=== PATIENT | female | born 1955 | race Two or more races ===

== ENCOUNTER 2017-09-17 18:59 | Emergency (ER) | payer OTHER ==
[~2017-09-17] VITALS: Ht 162.6 cm; Wt 89.8 kg
[2017-09-17] MEDS ORDERED: HYDROcodone-ACET 5/325MG TAB PO ONE (20:00)
[2017-09-17] MEDS ORDERED: KETOROLAC TROMETH 60MG/2ML VIAL IM ONE (20:00)
[2017-09-17 20:05] VITALS: BP 192/97
[2017-09-17] MEDS ORDERED: cloNIDine HCL 0.1 MG TAB PO ONE (20:45)
== END 2017-09-17 21:21 | disposition home or self-care (01) ==
LOC: ER 18:59
DX: S20.221A Contusion of right back wall of thorax, initial encounter (principal); S80.01XA Contusion of right knee, initial encounter; I10 Essential (primary) hypertension; E66.01 Morbid (severe) obesity due to excess calories; Z68.34 Body mass index [BMI] 34.0-34.9, adult; W18.39XA Other fall on same level, initial encounter; Y93.89 Activity, other specified; Y92.89 Other specified places as the place of occurrence of the external cause; Y99.8 Other external cause status
CPT/HCPCS: 72100; 73562; 93005; 96372; 99284; J1885

== ENCOUNTER 2020-12-29 11:04 | Inpatient (IN) | payer MEDICARE, OTHER ==
[~2020-12-29] VITALS: Ht 165.1 cm; Wt 86.2 kg
[2020-12-29 11:50] LABS: Basophils # (auto) 0.1 10 ^3/uL (0-0.2); Basophils % (auto) 1.2 % (0.0-2.0); Eosinophils # (auto) 0.2 10 ^3/uL (0-0.8); Hematocrit 42.6 % (36.0-46.0); Hemoglobin 14.9 g/dL (12.2-16.2); Lymphocytes # (auto) 1.1 10 ^3/uL (0.4-5.4); Lymphocytes % (auto) 19.4 % (10.0-50.0); Mean Corpuscular Hemoglobin 32.1 pg (28.0-32.0); Mean Corpuscular Hgb Conc. 34.9 g/dL (32.0-36.0); Monocytes # (auto) 0.5 10 ^3/uL (0-1.3); Monocytes % (auto) 8.3 % (0.0-12.0); Neutrophils # (auto) 3.7 10 ^3/uL (1.6-8.6); Neutrophils % (auto) 68.1 % (37.0-80.0); Nucleated Red Blood Cells % 0.1 %; Red Blood Cells 4.64 10^6/uL (4.0-5.20); Red Cell Distribution Width 13.7 % (11.8-14.3); White Blood Cell 5.5 10^3/uL (4.4-10.8)
[2020-12-29] MEDS ORDERED: cloNIDine HCL 0.1 MG TAB PO ONE (12:00)
[2020-12-29 12:13] LABS: Albumin 3.8 g/dL (3.4-5.0); Anion Gap 5 (5-15); Blood Urea Nitrogen 16 mg/dL (7-18); Calcium 8.9 mg/dL (8.5-10.1); Carbon Dioxide 30 mmol/L (21-32); Chloride 106 mmol/L (98-107); Glucose 97 mg/dL (74-106); Magnesium 2.5 mg/dL (1.6-2.6); Sodium 141 mmol/L (136-145)
[2020-12-29 12:19] LABS: Alanine Aminotransferase 38 U/L (13-56); Alkaline Phosphatase 77 U/L (45-117); Aspartate Aminotransferase 30 U/L (15-37); BUN/Creatinine Ratio 20.3; Bilirubin, Total 0.7 mg/dL (0.2-1.0); GFR African American 94 mL/min; GFR Non-African American 78 mL/min; Total Protein 7.8 g/dL (6.4-8.2)
[2020-12-29] MEDS ORDERED: POTASSIUM CHL 20MEQ/100ML 100 ML IV ONE (12:45)
[2020-12-29] MEDS ORDERED: ASPirin 81 mg TAB PO ONE (13:45)
[2020-12-29] MEDS ORDERED: MORPHINE SULFATE INJECTION 2 MG/ML SYRG IV PRN ×2 (13:45)
[2020-12-29] MEDS ORDERED: ACETAMINOPHEN 500 MG TAB PO PRN (13:45)
[2020-12-29] MEDS ORDERED: NITROGLYCERIN 0.4 MG SL TAB SL PRN (13:45)
[2020-12-29] MEDS: HYDROcodone-ACET 5/325MG TAB PO PRN (15:28)
[2020-12-29] MEDS: FOLIC ACID 1 MG, MULTIPLE VITAMIN 10 ML, MAGNESIUM SULF SDV 50% 8 MEQ, THIAMINE INJ 100... INJ SCH ×5 (15:30)
[2020-12-29 15:57] LABS: Cholesterol 158 mg/dL (< 200); Triglycerides 113 mg/dL (< 150)
[2020-12-29 15:59] LABS: HDL Cholesterol 43 mg/dL (40-59); LDL Cholesterol 97 mg/dL (< 100)
[2020-12-29] MEDS: ATORVASTATIN 20 MG TAB PO SCH (21:41)
[2020-12-29] MEDS: LABETALOL HCL 5 MG/ML 4ML SYRINGE IV PRN (21:41)
[2020-12-29 23:20] LABS: Urine Bacteria NONE SEEN /hpf (None Seen); Urine Blood TRACE /uL (Negative); Urine Mucus MODERATE (None Seen); Urine Specific Gravity 1.032 (1.001-1.035); Urine WBC 7 /hpf (0 - 5)
[2020-12-30] MEDS: LABETALOL HCL 5 MG/ML 4ML SYRINGE IV PRN (00:30)
[2020-12-30 04:25] VITALS: BP 195/84
[2020-12-30 06:51] VITALS: BP 195/84
[2020-12-30] MEDS ORDERED: ATE50T PO (07:06)
[2020-12-30] MEDS ORDERED: INFLUENZA QUAD 2020-2021 0.5 ML SYRG IM ONE (07:15)
[2020-12-30 09:00] VITALS: BP_SYST 99
[2020-12-30 09:18] LABS: BUN/Creatinine Ratio 16.2; Calcium 8.6 mg/dL (8.5-10.1); Potassium 3.1 mmol/L (3.5-5.1)
[2020-12-30] MEDS ORDERED: POTASSIUM CHLORIDE 40 MEQ, LIDOCAINE 1% (LOCAL ANESTH.) 4 ML in SODIUM CHL 0.9% 250 ML IV ONE (09:45)
[2020-12-30] MEDS: ASPirin 81 mg TAB PO SCH (10:13)
[2020-12-30] MEDS: FAMOTIDINE 20 MG TAB PO SCH (10:14)
[2020-12-30] MEDS: amLODIPine BESYLATE 5 MG TAB PO SCH (10:14)
[2020-12-30] MEDS: FOLIC ACID 1 MG, MULTIPLE VITAMIN 10 ML, MAGNESIUM SULF SDV 50% 8 MEQ, THIAMINE INJ 100... INJ SCH ×5 (12:15)
[2020-12-30] MEDS ORDERED: HCTZ 25 MG TAB PO ONE (12:30)
[2020-12-30 13:00] VITALS: BP 160/97
[2020-12-30 17:00] VITALS: BP 161/88
[2020-12-30 22:00] VITALS: BP 154/71
[2020-12-30] MEDS: ATORVASTATIN 20 MG TAB PO SCH (22:23)
[2020-12-30] MEDS: ONDANSETRON HCL 4 MG/2 ML VIAL IV PRN (22:40)
[2020-12-30] MEDS: HYDROcodone-ACET 5/325MG TAB PO PRN (22:40)
[2020-12-31 05:00] VITALS: BP 137/77
[2020-12-31 08:00] VITALS: BP 101/53
[2020-12-31] MEDS ORDERED: diphenhdrAMINE HCL 50 MG/1 ML VL IV ONE (08:45)
[2020-12-31] MEDS ORDERED: MIDAZOLAM HCL 2MG/2ML 2ml VIAL (1mg/ml) IV ONE (08:45)
[2020-12-31] MEDS ORDERED: fentaNYL CITRATE 100 MCG/2 ML VL IV ONE (08:45)
[2020-12-31] MEDS ORDERED: ONDANSETRON HCL 4 MG/2 ML VIAL IV ONE (08:45)
[2020-12-31] MEDS ORDERED: LIDOCAINE VISCOUS 2% 15ML UD MT ONE (08:45)
[2020-12-31] MEDS: HCTZ 25 MG TAB PO SCH (10:00)
[2020-12-31] MEDS: amLODIPine BESYLATE 5 MG TAB PO SCH (10:00)
[2020-12-31] MEDS: ASPirin 81 mg TAB PO SCH (10:00)
[2020-12-31] MEDS: FAMOTIDINE 20 MG TAB PO SCH (10:00)
[2020-12-31] MEDS ORDERED: METOPROLOL TARTRATE 1MG/1ML-5ML VIAL IV ONE (11:19)
[2020-12-31] MEDS ORDERED: hydrALAZINE HCL 20 MG/ML VL ONE (11:19)
[2020-12-31] MEDS: FOLIC ACID 1 MG, MULTIPLE VITAMIN 10 ML, MAGNESIUM SULF SDV 50% 8 MEQ, THIAMINE INJ 100... INJ SCH ×5 (14:30)
[2020-12-31 16:00] VITALS: BP 153/71
[2020-12-31] MEDS: ONDANSETRON HCL 4 MG/2 ML VIAL IV PRN (21:35)
[2020-12-31] MEDS: ATORVASTATIN 20 MG TAB PO SCH (21:40)
[2020-12-31 22:26] VITALS: BP 158/95
[2021-01-01] MEDS ORDERED: KETOROLAC TROMETH 30 MG/ML 1ML VIAL IV ONE (02:45)
[2021-01-01 05:00] VITALS: BP 162/79
[2021-01-01] MEDS: ONDANSETRON HCL 4 MG/2 ML VIAL IV PRN ×4 (07:59→23:43)
[2021-01-01] MEDS: ASPirin 81 mg TAB PO SCH (08:03)
[2021-01-01] MEDS: FAMOTIDINE 20 MG TAB PO SCH (08:07)
[2021-01-01] MEDS: HCTZ 25 MG TAB PO SCH (09:09)
[2021-01-01] MEDS: amLODIPine BESYLATE 5 MG TAB PO SCH (09:10)
[2021-01-01 09:30] VITALS: BP 168/74
[2021-01-01] MEDS: FOLIC ACID 1 MG, MULTIPLE VITAMIN 10 ML, MAGNESIUM SULF SDV 50% 8 MEQ, THIAMINE INJ 100... INJ SCH ×5 (11:02)
[2021-01-01] MEDS: HYDROmorphone HCL 2 MG/ML VL IV PRN ×3 (11:02→23:43)
[2021-01-01 13:00] VITALS: BP 107/51
[2021-01-01 16:53] VITALS: BP 148/85
[2021-01-01 22:00] VITALS: BP 149/83
[2021-01-01] MEDS: ATORVASTATIN 20 MG TAB PO SCH (22:10)
[2021-01-02 05:00] VITALS: BP 128/91
[2021-01-02 09:00] VITALS: BP 148/89
[2021-01-02] MEDS: FOLIC ACID 1 MG, MULTIPLE VITAMIN 10 ML, MAGNESIUM SULF SDV 50% 8 MEQ, THIAMINE INJ 100... INJ SCH ×5 (12:00)
[2021-01-02] MEDS: ASPirin 81 mg TAB PO SCH (12:26)
[2021-01-02] MEDS: HCTZ 25 MG TAB PO SCH (12:26)
[2021-01-02] MEDS: FAMOTIDINE 20 MG TAB PO SCH (12:27)
[2021-01-02] MEDS: amLODIPine BESYLATE 5 MG TAB PO SCH (12:27)
[2021-01-02] MEDS: HYDROcodone-ACET 5/325MG TAB PO PRN (12:42)
[2021-01-02 13:00] VITALS: BP 158/97
[2021-01-02 17:00] VITALS: BP 153/99
[2021-01-02] MEDS: HYDROmorphone HCL 2 MG/ML VL IV PRN (18:11)
[2021-01-02 21:32] VITALS: BP 148/90
[2021-01-02] MEDS: ATORVASTATIN 20 MG TAB PO SCH (22:14)
[2021-01-02] MEDS: SODIUM CHLORIDE 0.9% 1,000 ML IV SCH (22:42)
[2021-01-03 05:00] VITALS: BP 143/90
[2021-01-03 08:41] VITALS: BP 187/88
[2021-01-03] MEDS: ASPirin 81 mg TAB PO SCH (10:04)
[2021-01-03] MEDS: HCTZ 25 MG TAB PO SCH (10:04)
[2021-01-03] MEDS: amLODIPine BESYLATE 5 MG TAB PO SCH (10:05)
[2021-01-03] MEDS: FAMOTIDINE 20 MG TAB PO SCH (10:05)
[2021-01-03] MEDS: FOLIC ACID 1 MG, MULTIPLE VITAMIN 10 ML, MAGNESIUM SULF SDV 50% 8 MEQ, THIAMINE INJ 100... INJ SCH ×5 (12:53)
[2021-01-03 12:56] VITALS: BP 168/86
[2021-01-03] MEDS: HYDROmorphone HCL 2 MG/ML VL IV PRN (13:17)
[2021-01-03 16:33] VITALS: BP 147/85
[2021-01-03] MEDS: SODIUM CHLORIDE 0.9% 1,000 ML IV SCH (18:00)
[2021-01-03 21:00] VITALS: BP 149/87
[2021-01-03] MEDS: ATORVASTATIN 20 MG TAB PO SCH (21:41)
[2021-01-04] MEDS: HYDROmorphone HCL 2 MG/ML VL IV PRN ×2 (00:37→21:12)
[2021-01-04 05:00] VITALS: BP 141/82
[2021-01-04 08:00] VITALS: BP 137/91
[2021-01-04] MEDS: HYDROcodone-ACET 5/325MG TAB PO PRN (09:36)
[2021-01-04] MEDS: FAMOTIDINE 20 MG TAB PO SCH (09:37)
[2021-01-04] MEDS: ASPirin 81 mg TAB PO SCH (09:45)
[2021-01-04] MEDS: HCTZ 25 MG TAB PO SCH (09:46)
[2021-01-04] MEDS: amLODIPine BESYLATE 5 MG TAB PO SCH (09:47)
[2021-01-04 12:00] VITALS: BP 145/71
[2021-01-04] MEDS: FOLIC ACID 1 MG, MULTIPLE VITAMIN 10 ML, MAGNESIUM SULF SDV 50% 8 MEQ, THIAMINE INJ 100... INJ SCH ×5 (13:09)
[2021-01-04] MEDS: SODIUM CHLORIDE 0.9% 1,000 ML IV SCH (14:00)
[2021-01-04 16:00] VITALS: BP 159/84
[2021-01-04] MEDS: ONDANSETRON HCL 4 MG/2 ML VIAL IV PRN (17:47)
[2021-01-04] MEDS: ATORVASTATIN 20 MG TAB PO SCH (21:43)
[2021-01-04 23:23] VITALS: BP 160/105
[2021-01-05] MEDS: HYDROmorphone HCL 2 MG/ML VL IV PRN ×2 (03:45→16:24)
[2021-01-05 04:58] VITALS: BP 148/84
[2021-01-05 08:30] VITALS: BP 146/81
[2021-01-05] MEDS: SODIUM CHLORIDE 0.9% 1,000 ML IV SCH (10:00)
[2021-01-05] MEDS ORDERED: LORazepam 2MG/ML-1ML VIAL IV PRN (10:45)
[2021-01-05] MEDS: ONDANSETRON HCL 4 MG/2 ML VIAL IV PRN ×2 (10:55→17:01)
[2021-01-05] MEDS: FAMOTIDINE 20 MG TAB PO SCH (10:56)
[2021-01-05] MEDS: amLODIPine BESYLATE 5 MG TAB PO SCH (10:56)
[2021-01-05] MEDS: ASPirin 81 mg TAB PO SCH (10:57)
[2021-01-05] MEDS: HCTZ 25 MG TAB PO SCH (10:57)
[2021-01-05] MEDS: FOLIC ACID 1 MG, MULTIPLE VITAMIN 10 ML, MAGNESIUM SULF SDV 50% 8 MEQ, THIAMINE INJ 100... INJ SCH ×5 (11:52)
[2021-01-05 12:30] VITALS: BP 139/79
[2021-01-05 15:23] LABS: BUN/Creatinine Ratio 25.6; Calcium 9.8 mg/dL (8.5-10.1)
[2021-01-05 15:36] LABS: Potassium 2.4 mmol/L (3.5-5.1)
[2021-01-05] MEDS ORDERED: POTASSIUM CHLORIDE 20 MEQ, LIDOCAINE 1% (LOCAL ANESTH.) 2 ML in SODIUM CHL 0.9% 100 ML IV ONE (15:45)
[2021-01-05] MEDS ORDERED: POTASSIUM EFFERVESENT TAB 25 MEQ PO ONE (15:45)
[2021-01-05 17:00] VITALS: BP 149/94
== END 2021-01-05 18:40 | DRG 65 ==
LOC: ER 11:04 → TELE 11:05 → TELE-WESTW 12-30 04:25
PROVIDERS: ADMIT Nurse Practitioner Acute Care; ATTEND Family Medicine
PROC: B246ZZ4 Ultrasonography of Right and Left Heart, Transesophageal (ICD-10-PCS; principal; 2020-12-31)
DX: I63.511 Cerebral infarction due to unspecified occlusion or stenosis of right middle cerebral artery (principal); G81.94 Hemiplegia, unspecified affecting left nondominant side; E66.9 Obesity, unspecified; Z20.822 Contact with and (suspected) exposure to COVID-19; E87.6 Hypokalemia; F10.20 Alcohol dependence, uncomplicated; H53.462 Homonymous bilateral field defects, left side; I11.9 Hypertensive heart disease without heart failure; I16.0 Hypertensive urgency; I67.2 Cerebral atherosclerosis; W18.09XA Striking against other object with subsequent fall, initial encounter; Y92.009 Unspecified place in unspecified non-institutional (private) residence as the place of occurrence of the external cause; Z79.82 Long term (current) use of aspirin; Z79.899 Other long term (current) drug therapy; Z80.9 Family history of malignant neoplasm, unspecified; Z82.3 Family history of stroke; Z82.49 Family history of ischemic heart disease and other diseases of the circulatory system; Z83.3 Family history of diabetes mellitus; Z86.73 Personal history of transient ischemic attack (TIA), and cerebral infarction without residual deficits; Z87.891 Personal history of nicotine dependence; Z90.710 Acquired absence of both cervix and uterus; Z91.14 Patient's other noncompliance with medication regimen; Z91.19 Patient's noncompliance with other medical treatment and regimen; Z90.49 Acquired absence of other specified parts of digestive tract; Z88.5 Allergy status to narcotic agent; Z23 Encounter for immunization
CPT/HCPCS: 36415; 70450; 70551; 71045; 73060; 80048; 80053; 80061; 80320; 81001; 82140; 83735; 84484; 85025; 87086; 87426; 93005; 93306; 93312; 93886; 96365; 96367; 97110; 97530; 99152; 99291; G0378; J1885; J2001; J2250; J2405; J3480; J3490

== ENCOUNTER 2021-01-30 21:02 | Inpatient (IN) | payer MEDICARE, OTHER ==
[~2021-01-30] VITALS: Ht 165.1 cm; Wt 79.9 kg
[~2021-01-30 21:02] MED LIST: ATE50T PO
[2021-01-30 23:11] LABS: Basophils # (auto) 0.1 10 ^3/uL (0-0.2); Basophils % (auto) 1.1 % (0.0-2.0); Eosinophils # (auto) 0.2 10 ^3/uL (0-0.8); Eosinophils % (auto) 3.7 % (0.0-7.0); Hematocrit 45.6 % (36.0-46.0); Hemoglobin 16.1 g/dL (12.2-16.2); Lymphocytes # (auto) 1.5 10 ^3/uL (0.4-5.4); Lymphocytes % (auto) 24.8 % (10.0-50.0); Mean Corpuscular Hemoglobin 31.5 pg (28.0-32.0); Mean Corpuscular Hgb Conc. 35.2 g/dL (32.0-36.0); Mean Corpuscular Volume 89.5 fL (80.0-100.0); Monocytes # (auto) 0.7 10 ^3/uL (0-1.3); Monocytes % (auto) 11.7 % (0.0-12.0); Neutrophils # (auto) 3.6 10 ^3/uL (1.6-8.6); Neutrophils % (auto) 58.7 % (37.0-80.0); Nucleated Red Blood Cells % 0.2 %; Red Cell Distribution Width 13.1 % (11.8-14.3); White Blood Cell 6.1 10^3/uL (4.4-10.8)
[2021-01-30 23:38] LABS: Albumin 3.4 g/dL (3.4-5.0); Calcium 9.5 mg/dL (8.5-10.1)
[2021-01-30 23:43] LABS: BUN/Creatinine Ratio 21.4; Bilirubin, Total 0.9 mg/dL (0.2-1.0); Total Protein 7.1 g/dL (6.4-8.2)
[2021-01-30 23:52] LABS: Potassium 2.4 mmol/L (3.5-5.1)
[2021-01-31] MEDS ORDERED: fentaNYL CITRATE 100 MCG/2 ML VL IV ONE
[2021-01-31] MEDS ORDERED: ONDANSETRON HCL 4 MG/2 ML VIAL IV ONE
[2021-01-31] MEDS: POTASSIUM CHL 20MEQ/100ML 100 ML IV SCH ×4 (00:20→15:08)
[2021-01-31 03:14] LABS: BUN/Creatinine Ratio 19.1; Calcium 9.6 mg/dL (8.5-10.1)
[2021-01-31 03:23] LABS: Potassium 2.5 mmol/L (3.5-5.1)
[2021-01-31] MEDS ORDERED: HYDROcodone-ACET 5/325MG TAB PO PRN (05:00)
[2021-01-31] MEDS ORDERED: DOCUSATE SOD 100 MG CAP PO PRN (05:00)
[2021-01-31] MEDS ORDERED: NITROGLYCERIN 0.4 MG SL TAB SL PRN (05:00)
[2021-01-31] MEDS ORDERED: hydrALAZINE HCL 20 MG/ML VL IV PRN (05:00)
[2021-01-31] MEDS ORDERED: ACETAMINOPHEN 325 MG TAB PO PRN (05:00)
[2021-01-31] MEDS ORDERED: ONDANSETRON HCL 4 MG/2 ML VIAL ONE (05:23)
[2021-01-31] MEDS: SODIUM CHLOR 0.9% PF (SALINE LOCK) 10ML VIAL/SYR IV SCH ×3 (06:11→22:10)
[2021-01-31 08:55] LABS: Basophils # (auto) 0.1 10 ^3/uL (0-0.2); Basophils % (auto) 1.1 % (0.0-2.0); Eosinophils # (auto) 0.2 10 ^3/uL (0-0.8); Eosinophils % (auto) 3.4 % (0.0-7.0); Hemoglobin 15.9 g/dL (12.2-16.2); Lymphocytes # (auto) 1.8 10 ^3/uL (0.4-5.4); Lymphocytes % (auto) 28.8 % (10.0-50.0); Mean Corpuscular Hemoglobin 30.9 pg (28.0-32.0); Mean Corpuscular Hgb Conc. 34.6 g/dL (32.0-36.0); Mean Corpuscular Volume 89.4 fL (80.0-100.0); Monocytes # (auto) 0.7 10 ^3/uL (0-1.3); Monocytes % (auto) 11.7 % (0.0-12.0); Neutrophils # (auto) 3.3 10 ^3/uL (1.6-8.6); Nucleated Red Blood Cells % 0.7 %; Red Blood Cells 5.14 10^6/uL (4.0-5.20); Red Cell Distribution Width 13.1 % (11.8-14.3); White Blood Cell 6.1 10^3/uL (4.4-10.8)
[2021-01-31 09:19] LABS: Albumin 3.4 g/dL (3.4-5.0)
[2021-01-31 09:22] LABS: Bilirubin, Total 0.9 mg/dL (0.2-1.0); Total Protein 6.9 g/dL (6.4-8.2)
[2021-01-31] MEDS: MULTIPLE VITAMIN TAB PO SCH (09:24)
[2021-01-31] MEDS: ASPirin 81 mg TAB PO SCH (09:24)
[2021-01-31] MEDS: ZINC SULFATE 220mg CAP or TAB PO SCH (09:24)
[2021-01-31] MEDS: ATENOLOL 50 MG TAB PO SCH (09:25)
[2021-01-31] MEDS: FAMOTIDINE 20 MG TAB PO SCH ×2 (09:25→22:10)
[2021-01-31] MEDS: ASCORBIC ACID 500 MG TAB PO SCH ×2 (09:31→22:09)
[2021-01-31 09:40] LABS: Potassium 2.5 mmol/L (3.5-5.1)
[2021-01-31] MEDS ORDERED: POTASSIUM EFFERVESENT TAB 25 MEQ PO ONE ×2 (10:00)
[2021-01-31] MEDS ORDERED: FOLIC ACID 1 MG, MULTIPLE VITAMIN 10 ML, MAGNESIUM SULF SDV 50% 8 MEQ, THIAMINE INJ 100... INJ SCH ×5 (12:00)
[2021-01-31 13:00] VITALS: BP 138/78
[2021-01-31] MEDS: traMADol HCL 50 MG TAB PO PRN ×2 (13:26→22:10)
[2021-01-31] MEDS: ONDANSETRON HCL 4 MG/2 ML VIAL IV PRN (13:26)
[2021-01-31] MEDS ORDERED: ASPI-543 PO (14:02)
[2021-01-31] MEDS ORDERED: HYDR-4902 PO (14:02)
[2021-01-31] MEDS ORDERED: ATO40T PO (14:02)
[2021-01-31 17:00] VITALS: BP 115/65
[2021-01-31 22:00] VITALS: BP 124/70
[2021-01-31] MEDS: ATORVASTATIN 20 MG TAB PO SCH (22:10)
[2021-02-01 05:00] VITALS: BP 106/49
[2021-02-01] MEDS: SODIUM CHLOR 0.9% PF (SALINE LOCK) 10ML VIAL/SYR IV SCH ×3 (06:20→21:49)
[2021-02-01 07:24] LABS: Basophils # (auto) 0.1 10 ^3/uL (0-0.2); Basophils % (auto) 0.8 % (0.0-2.0); Eosinophils # (auto) 0.3 10 ^3/uL (0-0.8); Eosinophils % (auto) 4.6 % (0.0-7.0); Hematocrit 45.2 % (36.0-46.0); Hemoglobin 15.5 g/dL (12.2-16.2); Lymphocytes # (auto) 2.2 10 ^3/uL (0.4-5.4); Lymphocytes % (auto) 31.3 % (10.0-50.0); Mean Corpuscular Hemoglobin 31.2 pg (28.0-32.0); Mean Corpuscular Hgb Conc. 34.3 g/dL (32.0-36.0); Mean Corpuscular Volume 91.1 fL (80.0-100.0); Monocytes # (auto) 0.8 10 ^3/uL (0-1.3); Monocytes % (auto) 10.9 % (0.0-12.0); Neutrophils # (auto) 3.7 10 ^3/uL (1.6-8.6); Neutrophils % (auto) 52.4 % (37.0-80.0); Nucleated Red Blood Cells % 0.1 %; Red Blood Cells 4.96 10^6/uL (4.0-5.20); Red Cell Distribution Width 13.4 % (11.8-14.3); White Blood Cell 7.1 10^3/uL (4.4-10.8)
[2021-02-01 07:40] LABS: Albumin 3.2 g/dL (3.4-5.0); Calcium 9.3 mg/dL (8.5-10.1)
[2021-02-01 07:44] LABS: BUN/Creatinine Ratio 14.9; Bilirubin, Total 1.1 mg/dL (0.2-1.0); Total Protein 6.3 g/dL (6.4-8.2)
[2021-02-01 07:59] LABS: Potassium 2.8 mmol/L (3.5-5.1)
[2021-02-01] MEDS: POTASSIUM CHL 20MEQ/100ML 100 ML IV SCH ×3 (08:38→15:35)
[2021-02-01 09:00] VITALS: BP 126/76
[2021-02-01] MEDS: ASPirin 81 mg TAB PO SCH (09:30)
[2021-02-01] MEDS: FAMOTIDINE 20 MG TAB PO SCH ×2 (09:30→21:49)
[2021-02-01] MEDS: ASCORBIC ACID 500 MG TAB PO SCH ×2 (09:30→21:49)
[2021-02-01] MEDS: ONDANSETRON HCL 4 MG/2 ML VIAL IV PRN (09:35)
[2021-02-01] MEDS: ZINC SULFATE 220mg CAP or TAB PO SCH (10:00)
[2021-02-01] MEDS: MULTIPLE VITAMIN TAB PO SCH (10:00)
[2021-02-01] MEDS: ATENOLOL 50 MG TAB PO SCH (10:00)
[2021-02-01] MEDS: traMADol HCL 50 MG TAB PO PRN (12:15)
[2021-02-01 13:00] VITALS: BP 146/76
[2021-02-01 13:33] LABS: Urine Bacteria NONE SEEN /hpf (None Seen); Urine Blood TRACE /uL (Negative); Urine Specific Gravity 1.017 (1.001-1.035); Urine WBC 3 /hpf (0 - 5)
[2021-02-01 13:55] LABS: Alcohol, Urine < 3.0 mg/dL (0-10); Amphetamine Screen, Urine NEGATIVE (NEGATIVE); Barbiturate Scree,Urine NEGATIVE (NEGATIVE); Benzodiazephine Screen, Urine NEGATIVE (NEGATIVE); Cannabinoid Screen, Urine NEGATIVE (NEGATIVE); Cocaine Screen, Urine NEGATIVE (NEGATIVE); Opiate Scree,Urine POSITIVE (NEGATIVE); Phencyclidine Screen, Urine NEGATIVE (NEGATIVE)
[2021-02-01] MEDS: ALPRAZolam 0.5 MG TAB PO PRN (15:36)
[2021-02-01 17:00] VITALS: BP 133/79
[2021-02-01] MEDS ORDERED: POTASSIUM CHL 20MEQ/100ML 200 ML IV SCH (20:00)
[2021-02-01] MEDS: ATORVASTATIN 20 MG TAB PO SCH (21:49)
[2021-02-01 22:00] VITALS: BP 144/71
[2021-02-02] MEDS: ALPRAZolam 0.5 MG TAB PO PRN ×2 (00:44→16:53)
[2021-02-02] MEDS: SODIUM CHLOR 0.9% PF (SALINE LOCK) 10ML VIAL/SYR IV SCH ×3 (06:09→21:45)
[2021-02-02 06:50] VITALS: BP 150/76
[2021-02-02 07:44] LABS: Potassium 3.3 mmol/L (3.5-5.1)
[2021-02-02 07:50] LABS: BUN/Creatinine Ratio 15.8; Calcium 9.2 mg/dL (8.5-10.1)
[2021-02-02 09:13] VITALS: BP 137/65
[2021-02-02] MEDS: MULTIPLE VITAMIN TAB PO SCH (10:55)
[2021-02-02] MEDS: ASCORBIC ACID 500 MG TAB PO SCH ×2 (10:55→21:46)
[2021-02-02] MEDS: ASPirin 81 mg TAB PO SCH (10:55)
[2021-02-02] MEDS: FAMOTIDINE 20 MG TAB PO SCH ×2 (10:55→21:46)
[2021-02-02] MEDS: ZINC SULFATE 220mg CAP or TAB PO SCH (10:55)
[2021-02-02 13:00] VITALS: BP 120/71
[2021-02-02] MEDS: POTASSIUM CHL 20MEQ/100ML 200 ML IV SCH ×2 (13:04→23:29)
[2021-02-02] MEDS: traMADol HCL 50 MG TAB PO PRN ×2 (13:08→20:05)
[2021-02-02 17:01] VITALS: BP 118/69
[2021-02-02] MEDS: ATORVASTATIN 20 MG TAB PO SCH (21:45)
[2021-02-02 22:00] VITALS: BP 140/76
[2021-02-03 05:00] VITALS: BP 135/68
[2021-02-03 05:40] LABS: Calcium 9.1 mg/dL (8.5-10.1); Potassium 3.5 mmol/L (3.5-5.1)
[2021-02-03 05:44] LABS: BUN/Creatinine Ratio 12.8
[2021-02-03 09:00] VITALS: BP 145/78
[2021-02-03] MEDS: POTASSIUM CHL 20MEQ/100ML 200 ML IV SCH ×2 (10:28→20:00)
[2021-02-03] MEDS: MULTIPLE VITAMIN TAB PO SCH (10:29)
[2021-02-03] MEDS: ZINC SULFATE 220mg CAP or TAB PO SCH (10:29)
[2021-02-03] MEDS: FAMOTIDINE 20 MG TAB PO SCH ×2 (10:29→22:39)
[2021-02-03] MEDS: ASCORBIC ACID 500 MG TAB PO SCH ×2 (10:29→22:40)
[2021-02-03] MEDS: ASPirin 81 mg TAB PO SCH (10:29)
[2021-02-03] MEDS: traMADol HCL 50 MG TAB PO PRN (11:27)
[2021-02-03 13:00] VITALS: BP 147/88
[2021-02-03] MEDS: SODIUM CHLOR 0.9% PF (SALINE LOCK) 10ML VIAL/SYR IV SCH ×2 (14:00→22:39)
[2021-02-03 16:18] VITALS: BP 147/86
[2021-02-03 17:00] VITALS: BP 147/86
[2021-02-03] MEDS: ALPRAZolam 0.5 MG TAB PO PRN (19:47)
[2021-02-03 22:00] VITALS: BP 145/87
[2021-02-03] MEDS: ATORVASTATIN 20 MG TAB PO SCH (22:39)
== END 2021-02-04 02:27 | disposition home health service (06) | DRG 641 ==
LOC: ER 21:02 → EDBD 21:02 → TELE 21:03 → TELE-WESTW 01-31 11:41
PROVIDERS: ADMIT Nurse Practitioner Family; ATTEND Family Medicine
DX: E87.6 Hypokalemia (principal); F10.239 Alcohol dependence with withdrawal, unspecified; E78.00 Pure hypercholesterolemia, unspecified; E78.5 Hyperlipidemia, unspecified; F41.9 Anxiety disorder, unspecified; I10 Essential (primary) hypertension; Z20.828 Contact with and (suspected) exposure to other viral communicable diseases; Z80.9 Family history of malignant neoplasm, unspecified; Z83.3 Family history of diabetes mellitus; Z82.49 Family history of ischemic heart disease and other diseases of the circulatory system; Z86.73 Personal history of transient ischemic attack (TIA), and cerebral infarction without residual deficits; Z90.710 Acquired absence of both cervix and uterus; Z91.14 Patient's other noncompliance with medication regimen; Z90.49 Acquired absence of other specified parts of digestive tract; Z88.5 Allergy status to narcotic agent
CPT/HCPCS: 36415; 71045; 72192; 80048; 80053; 80061; 80307; 81001; 83036; 83735; 84484; 85025; 87081; 87426; 93005; 96365; 96366; 96375; 97110; 97530; G0378; J2405; J3480

== ENCOUNTER 2021-04-20 14:02 | Inpatient (IN) | payer MEDICARE, OTHER ==
[~2021-04-20] VITALS: Ht 160 cm; Wt 68.9 kg
[~2021-04-20 14:02] MED LIST changes: +ASPI-543 PO; +ATO40T PO; +HYDR-4902 PO
[2021-04-20 15:22] LABS: Basophils # (auto) 0.1 10 ^3/uL (0-0.2); Basophils % (auto) 0.8 % (0.0-2.0); Eosinophils # (auto) 0.1 10 ^3/uL (0-0.8); Eosinophils % (auto) 1.1 % (0.0-7.0); Hematocrit 41.5 % (36.0-46.0); Hemoglobin 14.3 g/dL (12.2-16.2); Lymphocytes # (auto) 0.9 10 ^3/uL (0.4-5.4); Lymphocytes % (auto) 10.5 % (10.0-50.0); Mean Corpuscular Hemoglobin 32.9 pg (28.0-32.0); Mean Corpuscular Hgb Conc. 34.5 g/dL (32.0-36.0); Mean Corpuscular Volume 95.3 fL (80.0-100.0); Monocytes # (auto) 0.8 10 ^3/uL (0-1.3); Monocytes % (auto) 8.9 % (0.0-12.0); Neutrophils # (auto) 7.1 10 ^3/uL (1.6-8.6); Neutrophils % (auto) 78.7 % (37.0-80.0); Red Blood Cells 4.35 10^6/uL (4.0-5.20); Red Cell Distribution Width 13.9 % (11.8-14.3)
[2021-04-20 15:38] LABS: Albumin 3.5 g/dL (3.4-5.0); Anion Gap 6 (5-15); Blood Urea Nitrogen 12 mg/dL (7-18); Calcium 9.8 mg/dL (8.5-10.1); Carbon Dioxide 24 mmol/L (21-32); Chloride 111 mmol/L (98-107); GFR African American 122 mL/min; GFR Non-African American 101 mL/min; Glucose 107 mg/dL (74-106); Magnesium 2.1 mg/dL (1.6-2.6); Potassium 4.2 mmol/L (3.5-5.1); Sodium 141 mmol/L (136-145)
[2021-04-20 15:43] LABS: Alanine Aminotransferase 17 U/L (13-56); Alkaline Phosphatase 67 U/L (45-117); Aspartate Aminotransferase 14 U/L (15-37); Bilirubin, Total 0.6 mg/dL (0.2-1.0)
[2021-04-20] MEDS ORDERED: ONDANSETRON HCL 4 MG/2 ML VIAL ONE (16:07)
[2021-04-20] MEDS ORDERED: ONDANSETRON HCL 4 MG/2 ML VIAL IV ONE (16:15)
[2021-04-20] MEDS ORDERED: LORazepam 2MG/ML-1ML VIAL IV ONE (18:30)
[2021-04-20] MEDS ORDERED: ONDANSETRON HCL 4 MG/2 ML VIAL IV PRN (21:00)
[2021-04-20] MEDS ORDERED: NITROGLYCERIN 0.4 MG SL TAB SL PRN (21:00)
[2021-04-20] MEDS ORDERED: TEMAZEPAM 15 MG CAP PO PRN (21:00)
[2021-04-20] MEDS ORDERED: ACETAMINOPHEN 325 MG TAB PO PRN (21:00)
[2021-04-20] MEDS ORDERED: LABETALOL HCL 5 MG/ML 4ML SYRINGE IV PRN (22:15)
[2021-04-20] MEDS: ASPirin 81 mg TAB PO SCH (22:21)
[2021-04-20] MEDS: ENOXAPARIN SOD 40 MG/0.4 ML SYRINGE SC SCH (22:22)
[2021-04-20] MEDS: ATORVASTATIN 20 MG TAB PO SCH (22:22)
[2021-04-20] MEDS: FAMOTIDINE 20 MG TAB PO SCH (22:22)
[2021-04-20] MEDS ORDERED: IOHEXOL 350 MG/ML 100ML IJ ONE (22:31)
[2021-04-21 05:48] VITALS: BP 144/90
[2021-04-21 06:52] VITALS: BP 132/71
[2021-04-21 09:00] VITALS: BP 148/85
[2021-04-21 10:05] LABS: BUN/Creatinine Ratio 21.1; Calcium 9.9 mg/dL (8.5-10.1); Potassium 3.7 mmol/L (3.5-5.1)
[2021-04-21 10:14] LABS: Basophils # (auto) 0.1 10 ^3/uL (0-0.2); Basophils % (auto) 1.5 % (0.0-2.0); Eosinophils # (auto) 0.1 10 ^3/uL (0-0.8); Eosinophils % (auto) 2.2 % (0.0-7.0); Hematocrit 36.5 % (36.0-46.0); Hemoglobin 12.4 g/dL (12.2-16.2); Lymphocytes # (auto) 1.2 10 ^3/uL (0.4-5.4); Mean Corpuscular Hemoglobin 32.8 pg (28.0-32.0); Mean Corpuscular Hgb Conc. 34.1 g/dL (32.0-36.0); Mean Corpuscular Volume 96.2 fL (80.0-100.0); Monocytes # (auto) 0.5 10 ^3/uL (0-1.3); Monocytes % (auto) 9.7 % (0.0-12.0); Neutrophils # (auto) 3.7 10 ^3/uL (1.6-8.6); Neutrophils % (auto) 65.6 % (37.0-80.0); Nucleated Red Blood Cells % 0.1 %; Red Blood Cells 3.79 10^6/uL (4.0-5.20); White Blood Cell 5.6 10^3/uL (4.4-10.8)
[2021-04-21] MEDS: ASPirin 81 mg TAB PO SCH (11:34)
[2021-04-21] MEDS: FAMOTIDINE 20 MG TAB PO SCH ×2 (11:34→21:05)
[2021-04-21] MEDS: ENOXAPARIN SOD 40 MG/0.4 ML SYRINGE SC SCH (11:34)
[2021-04-21] MEDS: ATENOLOL 50 MG TAB PO SCH (11:37)
[2021-04-21] MEDS ORDERED: SERT50TA19 PO (11:50)
[2021-04-21] MEDS ORDERED: QUET1TAB11 PO (11:50)
[2021-04-21] MEDS ORDERED: SPIR25TA8 PO (11:50)
[2021-04-21 13:00] VITALS: BP 137/79
[2021-04-21 16:12] LABS: Urine Amorphous Crystal FEW /hpf (None Seen); Urine Bacteria FEW /hpf (None Seen); Urine Blood Negative /uL (Negative); Urine Hyaline Cast FEW /lpf (0 - 2); Urine Mucus FEW (None Seen); Urine WBC 6 /hpf (0 - 5)
[2021-04-21] MEDS ORDERED: IOHEXOL 350 MG/ML 100ML IJ ONE (16:51)
[2021-04-21 17:00] VITALS: BP 160/96
[2021-04-21] MEDS: ATORVASTATIN 20 MG TAB PO SCH (21:05)
[2021-04-21 22:00] VITALS: BP 168/95
[2021-04-22 05:00] VITALS: BP 156/76
[2021-04-22 09:00] VITALS: BP 139/76
[2021-04-22] MEDS: ATENOLOL 50 MG TAB PO SCH (09:23)
[2021-04-22] MEDS: FAMOTIDINE 20 MG TAB PO SCH (09:26)
[2021-04-22] MEDS: ASPirin 81 mg TAB PO SCH (09:27)
[2021-04-22] MEDS: ENOXAPARIN SOD 40 MG/0.4 ML SYRINGE SC SCH (09:27)
[2021-04-22 13:00] VITALS: BP 144/89
[2021-04-22 13:16] VITALS: BP 145/84
[2021-04-22 17:00] VITALS: BP 132/78
== END 2021-04-22 21:02 | disposition home or self-care (01) | DRG 313 ==
LOC: ER 14:02 → EDBD 14:02 → TELE 20:50 → TELE-EAST 22:28
PROVIDERS: ADMIT Nurse Practitioner; ATTEND Internal Medicine
DX: R07.9 Chest pain, unspecified (principal); G81.94 Hemiplegia, unspecified affecting left nondominant side; E66.9 Obesity, unspecified; E78.5 Hyperlipidemia, unspecified; I08.0 Rheumatic disorders of both mitral and aortic valves; I10 Essential (primary) hypertension; Z20.822 Contact with and (suspected) exposure to COVID-19; Z80.9 Family history of malignant neoplasm, unspecified; Z82.49 Family history of ischemic heart disease and other diseases of the circulatory system; Z83.3 Family history of diabetes mellitus; Z90.710 Acquired absence of both cervix and uterus; R79.89 Other specified abnormal findings of blood chemistry; Z88.5 Allergy status to narcotic agent; Z79.899 Other long term (current) drug therapy; Z79.01 Long term (current) use of anticoagulants; Z79.891 Long term (current) use of opiate analgesic; Z79.82 Long term (current) use of aspirin; Z90.49 Acquired absence of other specified parts of digestive tract; Z68.29 Body mass index [BMI] 29.0-29.9, adult
CPT/HCPCS: 36415; 71045; 71275; 80048; 80053; 81001; 83735; 83880; 84484; 85025; 85049; 85379; 87426; 93005; 96374; 96375; 99291; G0378; J2405; J3490

== ENCOUNTER 2022-03-12 05:22 | Inpatient (IN) | payer MEDICARE, OTHER ==
[~2022-03-12] VITALS: Ht 167.6 cm; Wt 77.0 kg
[~2022-03-12 05:22] MED LIST changes: -ATE50T PO; +QUET1TAB11 PO; +SERT50TA19 PO; +SPIR25TA8 PO
[2022-03-12 06:19] LABS: Basophils # (auto) 0 10 ^3/uL (0-0.2); Basophils % (auto) 0.9 % (0.0-2.0); Eosinophils # (auto) 0.1 10 ^3/uL (0-0.8); Hematocrit 43.7 % (36.0-46.0); Lymphocytes # (auto) 0.4 10 ^3/uL (0.4-5.4); Lymphocytes % (auto) 7.7 % (10.0-50.0); Mean Corpuscular Hemoglobin 30.7 pg (28.0-32.0); Mean Corpuscular Hgb Conc. 34.3 g/dL (32.0-36.0); Mean Corpuscular Volume 89.6 fL (80.0-100.0); Monocytes # (auto) 0.5 10 ^3/uL (0-1.3); Monocytes % (auto) 8.9 % (0.0-12.0); Neutrophils # (auto) 4.6 10 ^3/uL (1.6-8.6); Neutrophils % (auto) 81.5 % (37.0-80.0); Red Blood Cells 4.88 10^6/uL (4.0-5.20); Red Cell Distribution Width 14.4 % (11.8-14.3); White Blood Cell 5.7 10^3/uL (4.4-10.8)
[2022-03-12 06:35] LABS: Albumin 3.9 g/dL (3.4-5.0); Calcium 9.3 mg/dL (8.5-10.1); Magnesium 2.4 mg/dL (1.6-2.6); Potassium 3.8 mmol/L (3.5-5.1)
[2022-03-12 06:38] LABS: Bilirubin, Total 0.5 mg/dL (0.2-1.0); Total Protein 7.8 g/dL (6.4-8.2)
[2022-03-12] MEDS ORDERED: NITROGLYCERIN 0.4 MG SL TAB SL PRN (10:30)
[2022-03-12] MEDS ORDERED: hydrALAZINE HCL 20 MG/ML VL IV PRN (10:45)
[2022-03-12 11:02] LABS: Cholesterol 177 mg/dL (< 200)
[2022-03-12 11:05] LABS: HDL Cholesterol 46 mg/dL (40-59); LDL Cholesterol 110 mg/dL (< 100); Triglycerides 113 mg/dL (< 150)
[2022-03-12] MEDS: ONDANSETRON HCL 4 MG/2 ML VIAL IV PRN ×2 (11:42→21:10)
[2022-03-12] MEDS ORDERED: ACETAMINOPHEN 500 MG TAB PO ONE (12:00)
[2022-03-12 12:18] LABS: Urine Bacteria NONE SEEN /hpf (None Seen); Urine Blood TRACE /uL (Negative); Urine Mucus FEW (None Seen); Urine Specific Gravity 1.008 (1.001-1.035); Urine WBC 272 /hpf (0 - 5); Urine WBC Clumps PRESENT /hpf (None Seen)
[2022-03-12] MEDS: cefTRIAXone 1GM/50ML D5W 50 ML IV SCH (14:00)
[2022-03-12] MEDS: SPIRONOLACTONE 25 MG TAB PO SCH (18:13)
[2022-03-12 18:50] VITALS: BP 164/83
[2022-03-12 22:00] VITALS: BP 140/88
[2022-03-12] MEDS: traMADol HCL 50 MG TAB PO PRN (23:25)
[2022-03-13 05:00] VITALS: BP 143/88
[2022-03-13] MEDS: SPIRONOLACTONE 25 MG TAB PO SCH (06:20)
[2022-03-13 06:26] LABS: Basophils # (auto) 0 10 ^3/uL (0-0.2); Basophils % (auto) 0.8 % (0.0-2.0); Eosinophils # (auto) 0 10 ^3/uL (0-0.8); Eosinophils % (auto) 0.1 % (0.0-7.0); Hematocrit 43.6 % (36.0-46.0); Hemoglobin 15.3 g/dL (12.2-16.2); Mean Corpuscular Hemoglobin 30.7 pg (28.0-32.0); Mean Corpuscular Volume 87.8 fL (80.0-100.0); Neutrophils # (auto) 3.5 10 ^3/uL (1.6-8.6); Neutrophils % (auto) 72.1 % (37.0-80.0); Nucleated Red Blood Cells % 0.1 %; Red Blood Cells 4.97 10^6/uL (4.0-5.20); Red Cell Distribution Width 14.1 % (11.8-14.3); White Blood Cell 4.8 10^3/uL (4.4-10.8)
[2022-03-13] MEDS: traMADol HCL 50 MG TAB PO PRN ×2 (06:45→18:36)
[2022-03-13 06:49] LABS: Albumin 3.8 g/dL (3.4-5.0); Calcium 9.4 mg/dL (8.5-10.1)
[2022-03-13 06:53] LABS: BUN/Creatinine Ratio 16.9; Bilirubin, Total 0.6 mg/dL (0.2-1.0); Total Protein 7.7 g/dL (6.4-8.2)
[2022-03-13 07:21] LABS: Lymphocytes # (auto) 0.5 10 ^3/uL (0.4-5.4); Lymphocytes % (auto) 9.4 % (10.0-50.0); Monocytes # (auto) 0.8 10 ^3/uL (0-1.3); Monocytes % (auto) 17.6 % (0.0-12.0)
[2022-03-13] MEDS ORDERED: TRAM50TA2 PO (07:42)
[2022-03-13] MEDS: cefTRIAXone 1GM/50ML D5W 50 ML IV SCH (09:00)
[2022-03-13 09:05] VITALS: BP 138/91
[2022-03-13] MEDS: ENOXAPARIN SOD 40 MG/0.4 ML SYRINGE SC SCH (10:00)
[2022-03-13 12:50] VITALS: BP 142/84
[2022-03-13 14:17] LABS: Alcohol, Urine < 3.0 mg/dL (0-10); Amphetamine Screen, Urine NEGATIVE (NEGATIVE); Barbiturate Scree,Urine NEGATIVE (NEGATIVE); Benzodiazephine Screen, Urine NEGATIVE (NEGATIVE); Cannabinoid Screen, Urine NEGATIVE (NEGATIVE); Cocaine Screen, Urine NEGATIVE (NEGATIVE); Opiate Scree,Urine NEGATIVE (NEGATIVE); Phencyclidine Screen, Urine NEGATIVE (NEGATIVE)
[2022-03-13 17:06] VITALS: BP 131/77
[2022-03-13] MEDS: ONDANSETRON HCL 4 MG/2 ML VIAL IV PRN (21:34)
[2022-03-13 22:00] VITALS: BP 139/90
[2022-03-13] MEDS: ATORVASTATIN 20 MG TAB PO SCH (22:37)
[2022-03-14 05:00] VITALS: BP 133/74
[2022-03-14 06:24] LABS: Basophils # (auto) 0 10 ^3/uL (0-0.2); Basophils % (auto) 0.8 % (0.0-2.0); Eosinophils # (auto) 0 10 ^3/uL (0-0.8); Hematocrit 42.1 % (36.0-46.0); Lymphocytes # (auto) 0.6 10 ^3/uL (0.4-5.4); Lymphocytes % (auto) 11.8 % (10.0-50.0); Mean Corpuscular Hemoglobin 31.3 pg (28.0-32.0); Mean Corpuscular Hgb Conc. 35.7 g/dL (32.0-36.0); Mean Corpuscular Volume 87.7 fL (80.0-100.0); Monocytes # (auto) 0.8 10 ^3/uL (0-1.3); Monocytes % (auto) 16.1 % (0.0-12.0); Neutrophils # (auto) 3.6 10 ^3/uL (1.6-8.6); Neutrophils % (auto) 71.3 % (37.0-80.0); Nucleated Red Blood Cells % 0.2 %; Red Cell Distribution Width 14.3 % (11.8-14.3)
[2022-03-14] MEDS: ONDANSETRON HCL 4 MG/2 ML VIAL IV PRN (06:25)
[2022-03-14] MEDS: traMADol HCL 50 MG TAB PO PRN ×2 (06:26→12:56)
[2022-03-14 06:45] LABS: BUN/Creatinine Ratio 23.7; Calcium 9.1 mg/dL (8.5-10.1); Potassium 4.1 mmol/L (3.5-5.1)
[2022-03-14 09:07] VITALS: BP 150/93
[2022-03-14] MEDS: cefTRIAXone 1GM/50ML D5W 50 ML IV SCH (10:49)
[2022-03-14] MEDS: SERTRALINE HCL 50 MG TAB PO SCH (10:49)
[2022-03-14] MEDS: ASPirin-EC 81 mg tab PO SCH (10:50)
[2022-03-14] MEDS: ENOXAPARIN SOD 40 MG/0.4 ML SYRINGE SC SCH (10:50)
[2022-03-14] MEDS: LISINOPRIL 20 MG TAB PO SCH (10:51)
[2022-03-14 12:56] VITALS: BP_SYST 118; BP_DIAS 59; BP_DIAS 93
[2022-03-14 17:00] VITALS: BP 110/74
[2022-03-14 20:00] VITALS: BP 102/65
[2022-03-14] MEDS: ATORVASTATIN 20 MG TAB PO SCH (21:16)
[2022-03-14 22:00] VITALS: BP 107/75
[2022-03-15] MEDS: traMADol HCL 50 MG TAB PO PRN (06:52)
[2022-03-15 09:00] VITALS: BP 99/66
[2022-03-15] MEDS: SERTRALINE HCL 50 MG TAB PO SCH (09:44)
[2022-03-15] MEDS: ASPirin-EC 81 mg tab PO SCH (09:44)
[2022-03-15] MEDS: cefTRIAXone 1GM/50ML D5W 50 ML IV SCH (09:44)
[2022-03-15] MEDS: LISINOPRIL 20 MG TAB PO SCH (09:45)
[2022-03-15] MEDS: ENOXAPARIN SOD 40 MG/0.4 ML SYRINGE SC SCH (09:46)
[2022-03-15] MEDS ORDERED: SERTRALINE HCL 50 MG TAB PO SCH (10:00)
[2022-03-15] MEDS ORDERED: LISI20TA28 PO (13:08)
[2022-03-15] MEDS ORDERED: AMOX500T3 PO (13:08)
[2022-03-15 14:00] VITALS: BP 111/75
[2022-03-15 16:04] VITALS: BP 99/66
[2022-03-15 17:00] VITALS: BP 111/63
== END 2022-03-15 17:25 | disposition hospice, home (50) | DRG 291 ==
LOC: ER 05:22 → EDBD 05:22 → TELE 10:29 → TELE-CENTR 17:56 → TELE 03-15 13:08 → TELE-CENTR 03-15 13:13
PROVIDERS: ADMIT Registered Nurse; ATTEND Internal Medicine
DX: I13.0 Hypertensive heart and chronic kidney disease with heart failure and stage 1 through stage 4 chronic kidney disease, or unspecified chronic kidney disease (principal); I50.33 Acute on chronic diastolic (congestive) heart failure; N39.0 Urinary tract infection, site not specified; I69.354 Hemiplegia and hemiparesis following cerebral infarction affecting left non-dominant side; I16.0 Hypertensive urgency; E66.9 Obesity, unspecified; R07.89 Other chest pain; Z20.822 Contact with and (suspected) exposure to COVID-19; E78.5 Hyperlipidemia, unspecified; F32.A Depression, unspecified; F41.9 Anxiety disorder, unspecified; N18.2 Chronic kidney disease, stage 2 (mild); Z79.899 Other long term (current) drug therapy; Z82.49 Family history of ischemic heart disease and other diseases of the circulatory system; Z83.3 Family history of diabetes mellitus; Z90.710 Acquired absence of both cervix and uterus; Z88.5 Allergy status to narcotic agent; Z90.49 Acquired absence of other specified parts of digestive tract; Z68.27 Body mass index [BMI] 27.0-27.9, adult; I20.8 Other forms of angina pectoris
CPT/HCPCS: 36415; 51702; 71045; 80048; 80053; 80061; 80307; 81001; 83735; 83880; 84443; 84484; 85025; 87086; 93005; 93306; 96365; 96366; 97163; G0378; J0696; J2405

== ENCOUNTER 2025-09-18 12:45 | Emergency (ER) | payer MEDICARE, BC ==
[~2025-09-18] VITALS: Ht 165.1 cm; Wt 85.0 kg
[~2025-09-18 12:45] MED LIST changes: +AMOX500T3 PO; -ATO40T PO; +ATOR-507 PO; +LISI20TA56 PO; +SERT-206 PO; -SERT50TA19 PO; -SPIR25TA8 PO; +TRAM50TA2 PO
[2025-09-18 12:48] VITALS: BP 176/98; PULSE 77; RESP 18; TEMP 97.8; O2SAT 97
--- NOTE | 2025-09-18 13:41 | DVH ---
CHEST RADIOGRAPH Indication: +TB SKIN TEST Technique: Single frontal view of the chest was obtained COMPARISON: CHEST PORTABLE on DOS: 03/12/22, CXRP on DOS: 03/12/22, CHEST PORTABLE on DOS: 04/20/21, CHEST XRAY 1 VIEW on DOS: 01/31/21 FINDINGS: Lines and Tubes: None Lungs: Clear Pleura: No effusion. No pneumothorax. Cardiomediastinal contours: Unremarkable Bones: Unremarkable IMPRESSION: No acute disease. No radiographic findings of TB.
--- NOTE | 2025-09-18 13:49 | ED.PDOC ---
History of Present Illness HPI Comments A 70 YEAR OLD FEMALE PRESENTS TO THE ED WITH COMPLAINT OF POSSIBLE TB EXPOSURE. PT STATES SHE HAD LAB WORK DONE AT [facility] LAST WEEK AND STATES SHE RECEIVED CALL FROM ROOMS DIRECTOR TELLING HER THAT SHE POSSIBLE HAD TESTED POSITIVE FOR TB AND TO COME LOCAL ED FOR CHEST X-RAY TO R/O TB. PT STATES SHE HAS BEEN HAVING COUGH FOR THE PAST 5 DAYS BUT RESOLVED. PT DID NOT BRING HER BLOOD TEST FOR TB. PATIENT DENIES FEVER, CHILLS, SHORTNESS OF BREATH, CHEST PAIN, ABDOMINAL PAIN, NAUSEA, VOMITING, HEADACHE, OR OTHER COMPLAINTS. NO OTHER SYMPTOMS OR MODIFYING FACTORS AT THIS TIME. PATIENT IS ALERT, ORIENTED X 4, AND HAS STEADY GAIT. Chief Complaint: Cough Time Seen by MD: 13:43 Primary Care Provider: DR THOMPSON Reviewed Notes: Nurses Notes, Medications, Allergies Allergies: Coded Allergies: Morphine (Verified Allergy, Unknown, 12/29/20) Home Meds Active Scripts Amoxicillin Trihydrate (Amoxicillin) 500 Mg Tab, 1 TAB PO BID for 5 Days, #10 TAB Prov:BROOKLYN HENNESSY MD 03/15/22 Lisinopril (Lisinopril) 20 Mg Tab, 1 TAB PO DAILY, #30 TAB Prov:BROOKLYN HENNESSY MD 03/15/22 Reported Medications Tramadol Hcl (Tramadol Hcl) 50 Mg Tab, 0.5-1 TAB PO TID PRN for pain 03/13/22 Quetiapine Fumerate (QUETIAPINE FUMARATE) 25 Mg Tab, 0.5 TAB PO BID 04/21/21 Sertraline Hcl (Sertraline Hcl) 50 Mg Tab, 1 TAB PO DAILYPRN 04/21/21 Hydrocodone-Acetaminophen (Hydrocodone Bitartrate/AC 5-325 mg) 1 Tab Tab, 1 TAB PO Q4HPRN PRN for MILD PAIN (1-3 PAIN SCALE), TAB 01/31/21 Aspirin (Aspir-Low) 81 Mg Tab, 81 MG PO DAILY for 30 Days, MG 01/31/21 Atorvastatin Calcium (Lipitor) 40 Mg Tab, 1 TAB PO QPM, #90 TAB 1 Refill 01/31/21 Information Source: Patient Mode of Arrival: Wheelchair Severity: Mild, Moderate Timing: Days Medication Refill: For: Other (CHEST X-RAY FOR POSSIBLE TB ) Past Medical History PAST MEDICAL HISTORY: CVA, High Lipids, HTN, TIA Surgical History: Cholecystectomy, Hysterectomy PROCESS IMPROVEMENT MANAGER History: No Pertinent PROCESS IMPROVEMENT MANAGER History Family History Family History: Family hx of DM, Family hx of Cancer Social History Smoker: Non-Smoker Alcohol: Denies ETOH Use Drugs: Denies Drug Use Lives In: Home Constitutional: denies: chills, diaphoresis, fatigue, fever, malaise, sweats, weakness, others EENTM: denies: blurred vision, double vision, ear bleeding, ear discharge, ear drainage, ear pain, ear ringing, eye pain, eye redness, hearing loss, mouth pain, mouth swelling, nasal discharge, nose bleeding, nose congestion, nose pain, photophobia, tearing, throat pain, throat swelling, voice changes, others Respiratory: reports: cough; denies: hemoptysis, orthopnea, SOB at rest, shortness of breath, SOB with excertion, stridor, wheezing, others Cardiovascular: denies: chest pain, dizzy spells, diaphoresis, Dyspnea on exertion, edema, irregular heart beat, left arm pain, lightheadedness, palpitations, PND, syncope, others Gastrointestinal: denies: abdomen distended, abdominal pain, blood streaked bowels, constipated, diarrhea, dysphagia, difficulty swallowing, hematemesis, melena, nausea, poor appetite, poor fluid intake, rectal bleeding, rectal pain, vomiting, others Genitourinary: denies: abnormal vagina bleeding, burning, dyspareunia, dysuria, flank pain, frequency, hematuria, incontinence, pain, , vagina discharge, urgency, others Neurological: denies: dizziness, fainting, headache, left sided numbness, left sided weakness, numbness, paresthesia, pre-existing deficit, right sided numbness, right sided weakness, seizure, speech problems, tingling, tremors, weakness, others Musculoskeletal: denies: back pain, gout, joint pain, joint swelling, muscle pain, muscle stiffness, neck pain, others Integumetry: denies: bruises, change in color, change in hair/nails, dryness, laceration, lesions, lumps, rash, wounds, others Allergic/Immunocompromised: denies: Difficulty Healing, Frequent Infections, Hives, Itching, others Hematologic/Lymphatic: denies: anemia, blood clots, easy bleeding, easy bruising, swollen glands, others Endocrine: denies: excessive hunger, excessive sweating, excessive thirst, excessive urination, flushing, intolerance to cold, intolerance to heat, unexplained weight gain, unexplained weight loss, others Psychiatric: denies: anxiety, bipolar disorder, depression, hopeless, panic disorder, schizophrenia, sleepless, suicidal, others All Other Systems: Reviewed and Negative Physical Exam General Appearance: No Apparent Distress, Normal HEENT: Normal ENT Inspection, PERRL/EOMI, Pharynx Normal, TMs Normal Neck: Full Range of Motion, Non-Tender, Normal, Normal Inspection Respiratory: Chest Non-Tender, Lungs Clear, No Accessory Muscle Use, No Respiratory Distress, Normal Breath Sounds Cardiovascular: No Edema, No JVD, No Murmur, No Gallop, Normal Peripheral Pulses, Regular Rate/Rhythm Breast Exam: Deferred Gastrointestinal: No Organomegaly, Non Tender, No Pulsatile Mass, Normal Bowel Sounds, Soft Genitalia: Deferred Pelvic: Deferred Rectal: Deferred Extremities: No calf tenderness, Normal capillary refill, Normal inspection, Normal range of motion, Non-tender, No pedal edema, Other (LEFT SIDE WEAKNESS DUE TO HX OF CVA ) Musculoskeletal : Apperance: Normal Neurologic: Alert, arcade games mechanic II-XII nml as Tested, No Motor Deficits, Normal Affect, Normal Mood, No Sensory Deficits Cerebellar Function: Normal Reflexes: Normal Skin: Dry, Normal Color, Warm Peripheral Pulses: 2+ carotid (R), 2+ carotid (L) Lymphatic: No Adenopathy Was a procedure done? Was a procedure done?: No Differential Dx Considerations may include: CHEST X-RAY, R/O TB, X-Ray, Labs, Meds, VS Vital Signs Date Time Temp Pulse Resp B/P (MAP) Pulse Ox O2 Delivery O2 Flow Rate FiO2 09/18/25 12:48 97.8 77 18 176/[address] [address] Ph: [phone] DIAGNOSTIC IMAGING Diagnostic Imaging Report : [id number] Signed PATIENT: ANITHA ESTRADA ACCT: [id number] UNIT: [id number] : 1955 LOC: ER ROOM / BED: / AGE / SEX: 70 / F ADM STATUS: REG ER SERVICE 1304 ORDERING PHYSICIAN: LIBERTY SCHREIBER PROCEDURE(s): CXRP - CHEST PORTABLE REASON: +TB SKIN TEST ORDER NUMBER(s): [id number], ACCESSION NUMBER(s): [id number] CHEST RADIOGRAPH Indication: +TB SKIN TEST Technique: Single frontal view of the chest was obtained COMPARISON: CHEST PORTABLE on DOS: 03/12/22, CXRP on DOS: 03/12/22, CHEST PORTABLE on DOS: 04/20/21, CHEST XRAY 1 VIEW on DOS: 01/31/21 FINDINGS: Lines and Tubes: None Lungs: Clear Pleura: No effusion. No pneumothorax. Cardiomediastinal contours: Unremarkable Bones: Unremarkable IMPRESSION: No acute disease. No radiographic findings of TB. ATED BY: GUME ALEXANDRA MD DICTATED DATE/TIME: 09/18/251338 SIGNED BY: GUME ALEXANDRA MD SIGNED DATE/TIME: 09/18/251338 CC: X-Ray, Labs, Meds, VS Comment COURSE: EXTERNAL MEDICAL RECORDS REVIEWED: [NONE] INDEPENDENT HISTORIANS: [NONE] SOCIAL DETERMINANTS OF HEALTH: [NONE] LABS ORDERED: NONE REVIEWED AND INTERPRETED RESULTS: NONE IMAGING ORDERED: CHEST X-RAY TREATMENTS ORDERED: NONE PROCEDURES PERFORMED: NONE CRITICAL CARE TIME: NONE I HAVE DISCUSSED THE PATIENT WITH THE ATTENDING PHYSICIAN AND HE AGREES WITH THE PATIENT'S PLAN OF CARE AND DISPOSITION. BASED ON HISTORY OF PRESENT ILLNESS, AND PHYSICAL EXAM, PATIENT WILL BE DISCHARG ED HOME. SHARED DECISION MAKING: DISCUSSED WITH PATIENT THAT THEIR WORKUP WAS NORMAL. PATIENT INSTRUCTED TO FOLLOW UP WITH PRIMARY CARE PROVIDER IN 1-2 DAYS FOR RE- EVALUATION OF SYMPTOMS. PATIENT VERBALIZES UNDERSTANDING TO RETURN TO ED FOR NEW OR WORSENING SYMPTOMS OR IF FOLLOW UP WITH PCP CANNOT BE OBTAINED. PATIENT FEELS COMFORTABLE GOING HOME AT THIS TIME. ALL QUESTIONS ADDRESSED AT TIME OF DISCHARGE. SPOKE WITH DR BAGLEY REGARDING CARE FOR POSSIBLE EXPOSURE TO TB. PT HAD CHEST X-RAY THAT WAS NEGATIVE AND DR BAGLEY RECOMMENED PT TO FOLLOW UP WITH PCP REGARDING FURTHER CARE. PT IS OK TO D/C HOME. Time of 1ST Reevaluation: 14:15 Reevaluation 1ST: Improved Patient Education/Counseling: Diagnosis, Treatment, Need For Follow Up Family Education/Counseling: Diagnosis, Treatment, Need For Follow Up Medical Screening: No EMC Exist At This Time SEPSIS Sepsis Screen Date sepsis recognized/suspect: Sep 18, 2025 Time Sepsis recognized/suspect: 1250 Recent Procedure: No On Antibiotic Therapy: No Respiratory Rate >20: No Heart Rate >90: No Temp<36 C (96.8 F) or >38.3 C: No SBP <90 or MAP <65 mmHG: No New Acute Mental Status Change: No Is the patient on CPAP, BIPAP,: No Physician Orders Chest Portable (09/18/25 13:04) Vital Signs Date Time Temp Pulse Resp B/P (MAP) Pulse Ox O2 Delivery O2 Flow Rate FiO2 09/18/25 12:48 97.8 77 18 176/98 97 97.8 Departure 1 Departure Time of Disposition: 14:00 Impression: Primary Impression: Chest x-ray requested Additional Impression: Normal chest x-ray Disposition: HOME / SELF CARE / HOMELESS Condition: Stable Additional Instructions: INSTRUCTIONS: FOLLOW-UP WITH PCP IN 1 TO 2 DAYS. TAKE MEDICATIONS PRESCRIBED. RETURN TO ED FOR ANY NEW OR WORSENING SYMPTOMS. Discharged With: Self, Relative, Spouse Critical Care Note Critical Care Time?: No Stability Stability form required: No Heart Score Heart Score: Heart Score Response (Comments) Value History N/A 0 EKG N/A 0 Age N/A 0 Risk Factors N/A 0 Troponin N/A 0 Total 0 I personally scribed for LIBERTY SCHREIBER ([email or web address]) on 09/18/25 at 13:49. Electronically submitted by Eleanor Foote ([email or web address]). I personally scribed for LIBERTY SCHREIBER ([email or web address]) on 09/18/25 at 13:50. Electronically submitted by Eleanor Foote ([employer]). I personally scribed for LIBERTY SCHREIBER ([email or web address]) on 09/18/25 at 13:54. Electronically submitted by Eleanor Foote ([employer]). LIBERTY SCHREIBER Sep 18, 2025 13:49
== END 2025-09-18 14:02 | disposition home or self-care (01) ==
LOC: ER 12:45
DX: R05.9 Cough, unspecified (principal); I10 Essential (primary) hypertension; E78.5 Hyperlipidemia, unspecified; Z20.1 Contact with and (suspected) exposure to tuberculosis; Z79.82 Long term (current) use of aspirin; Z79.899 Other long term (current) drug therapy; Z86.73 Personal history of transient ischemic attack (TIA), and cerebral infarction without residual deficits; Z90.49 Acquired absence of other specified parts of digestive tract; Z90.710 Acquired absence of both cervix and uterus; Z88.5 Allergy status to narcotic agent
CPT/HCPCS: 71045